=== PATIENT | male | born 1980 | race African-American/Black ===

== ENCOUNTER 2024-03-17 22:49 | Emergency (ER) | payer MEDICAID, OTHER ==
[~2024-03-17] VITALS: Ht 175.3 cm; Wt 76.2 kg
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
[2024-03-18] MEDS: ACETAMINOPHEN 325 MG TAB PO ONE (03:08)
--- NOTE | 2024-03-18 03:38 | DVH ---
Examination: HWOCT CLINICAL INDICATION: head injury COMPARISON: None. CONTRAST USED: None. TECHNIQUE: The examination was performed obtaining 5 mm slices without contrast. CT scan was done a ccording to ALARA (As Low as Reasonably Achievable). Multiplanar reconstructions were obtained. FINDINGS: SUPRATENTORIAL BRAIN: Cerebral Hemispheres: There is no midline shift or mass effect, intra- or extra-axial fluid collecti ons or hemorrhage. Periventricular White Matter/Basal Ganglia: No abnormal areas of altered attenuation within the leroy ventricular white matter or basal ganglia. POSTERIOR FOSSA: The brainstem is normal and the visualized cerebellar hemispheres are unremarkable. VENTRICULAR SYSTEM: The ventricular system is normal in size. There is no evidence of hydrocephalus or transependymal flow of cerebrospinal fluid. SKULL BASE AND PARASELLAR REGION: The skull base is normal, with no parasellar masses or abnormaliti es identified. CALVARIUM AND SCALP REGION: No significant abnormality is seen. PARANASAL SINUSES: No significant inflammatory changes are identified in the visualized paranasal si nuses. IMPRESSION: No obvious intracranial injury or skull vault fracture. Advised further evaluation with MRI brain without contrast, if clinically indicated. Electronically Signed 03/18/2024 03:37 Dmitri Pearce
--- NOTE | 2024-03-18 03:46 | DVH ---
Examination: CS2 CLINICAL INDICATION: neck pain COMPARISON: None. CONTRAST USED: None. TECHNIQUE: The examination was performed obtaining 2 mm slices in the axial plane. Sagittal and 3D reconstructions were also obtained. Technique for this CT scan was done using principles of ALARA (A s Low As Reasonably Achievable). Multiplanar reconstructions were obtained. FINDINGS: Limited evaluation, due to beam hardening artifacts in the spinal canal at C6, C7 and T1 levels. The alignment of the cervical spine is maintained. Straightening of the cervical spine, likely due to paraspinal muscle spasm. Well-defined corticated defects noted in the anterior arch of atlas vertebra in midline, right parame kiran location and posterior arch of atlas vertebra in midline, suggestive of anterior and posterior r achischisis respectively. Rest of the posterior elements are unremarkable. There is no fracture or subluxation. No destructive bony lesion is noted. The pre- and para-vertebral soft tissues are unremarkable. Atlanto-axial joint is within normal limits. C2-C3 level: Disc height is within normal limits, with posterocentral disc bulge (thickness up to ap proximately 2 mm) indenting the anterior thecal sac. There is no significant central canal or neural foraminal narrowing. The facet joints and ligamentum flavum are within normal limits. C3-C4 level: Disc height is within normal limits, with posterocentral disc bulge (thickness up to ap proximately 3 mm) indenting the anterior thecal sac. There is no significant central canal or neural foraminal narrowing. The facet joints and ligamentum flavum are within normal limits. C4-C5 level: Disc height is within normal limits, with posterocentral disc bulge (thickness up to ap proximately 1.8 mm) indenting the anterior thecal sac. There is no significant central canal narrowi ng. Vertebral osteophytes, causing mild right neural foraminal narrowing. The facet joints and liga mentum flavum are within normal limits. C5-C6 level: Disc height is within normal limits, with posterocentral and bilateral paracentral disc bulge (thickness up to approximately 2.9 mm) indenting the anterior thecal sac and causing mild narr owing of bilateral lateral recesses. Vertebral osteophytes along with mild bilateral facetal joint a rthropathy, causing mild bilateral neural foraminal narrowing. There is no significant central canal narrowing. The ligamentum flavum is within normal limits. C6-C7 level: Disc height is within normal limits. The spinal canal cannot be commented upon, due to beam hardening artifacts within. Vertebral osteophytes along with mild left facetal joint arthropat hy, causing mild left neural foraminal. C7-T1 level: Disc height is within normal limits. The spinal canal cannot be commented upon, due to beam hardening artifacts within. The facet joints are within normal limits. Note that detection of disc herniations is limited with CT, for which an MRI may be obtained if clini toshia indicated. IMPRESSION: 1. Limited evaluation, due to beam hardening artifacts in the spinal canal at C6, C7 and T1 levels. 2. No obvious fracture or dislocation in the cervical spine. 3. Straightening of the cervical spine, likely due to paraspinal muscle spasm. 4. Cervical spondylosis as described. 5. Chronic and/or ancillary findings as described above. Advised further evaluation with MRI cervical spine without contrast, if clinically indicated. Electronically Signed 03/18/2024 03:45 Dmitri Pearce
[2024-03-18] MEDS ORDERED: CYCL-614 PO (03:51)
[2024-03-18] MEDS ORDERED: IBUP-1456 PO (03:51)
[2024-03-18 04:29] VITALS: BP 101/67; PULSE 67; RESP 18; TEMP 97.8; O2SAT 94
== END 2024-03-18 04:29 | disposition home or self-care (01) ==
LOC: ER 22:49
DX: S16.1XXA Strain of muscle, fascia and tendon at neck level, initial encounter (principal); S09.8XXA Other specified injuries of head, initial encounter; Z79.899 Other long term (current) drug therapy; V53.5XXA Driver of pick-up truck or van injured in collision with car, pick-up truck or van in traffic accident, initial encounter; Y93.I9 Activity, other involving external motion; Y92.89 Other specified places as the place of occurrence of the external cause; Y99.8 Other external cause status
CPT/HCPCS: 70450; 72125